=== PATIENT | female | born 1975 | race Caucasian/White ===

== ENCOUNTER → 2018-05-06 | Outpatient (CLI) | payer SELFPAY | LOC: MC.RAD 09:45 | DX: N60.02 Solitary cyst of left breast (principal) ==

== ENCOUNTER → 2018-09-07 | Outpatient (CLI) | payer SELFPAY | LOC: SUN.DIA 08:40 | DX: O24.419 Gestational diabetes mellitus in pregnancy, unspecified control (principal); Z3A.32 32 weeks gestation of pregnancy | CPT/HCPCS: G0108 ==

== ENCOUNTER 2018-10-16 19:50 | Inpatient (IN) | payer SELFPAY ==
[2018-10-16] VITALS (12 sets, daily range): BP systolic 110–133; BP diastolic 55–76; PULSE 71–90; TEMP 98.6
[~2018-10-16] VITALS: Ht 170.2 cm; Wt 80.5 kg
--- NOTE | 2018-10-16 19:55 | NUR ---
PT ARRIVES TO UNIT AMBULATORY WITH SPOUSE AND SISTER WITH COMPLAINTS OF SROM AT 1130 TODAY. PT TO ROOM, CHANGED INTO GOWN. VS OBTAINED, EFM APPLIED, SVE PERFORMED.
[2018-10-16 22:00] LABS: BASO % 0.3 % (0.0-2.0); EOS # 0.1 (0.0-0.7); EOS % 0.7 % (0-4.0); GRAN # 8.6 (1.4-6.5); GRAN % 74.1 % (42.2-75.2); HEMOGLOBIN 10.4 g/dl (12.5-16.0); LYMPH # 1.8 (1.2-3.4); LYMPH % 15.9 % (20.0-51.0); MEAN CELL VOLUME 87 fl (80.0-100.0); MEAN CORPUSCULAR HEMOGLOBIN 28 pg (27.0-31.0); MEAN CORPUSCULAR HGB CONC 32 g/dl (33.0-37.0); MEAN PLATELET VOLUME 9.8 fl (7.4-10.4); MONO # 0.9 (0.1-0.6); MONO % 8.1 % (1.7-9.3); PLATELET COUNT 321 K/mm3 (130-400); RED BLOOD COUNT 3.71 M/mm3 (4.10-5.30)
[2018-10-16 22:02] LABS: HEMATOCRIT 32.1 % (37.0-47.0)
[2018-10-17] VITALS (56 sets, daily range): BP systolic 101–187; BP diastolic 53–129; PULSE 66–123; TEMP 97.8–99
--- NOTE | 2018-10-17 04:00 | NUR ---
0250- SVE /3 by MICHEAL Funk. 0255- updated. 0300- Decels noted on FHT strip; maternal HR suspected. Patient repositioned to sitting upright at this time. 0340- Patient requests birthing ball. FHT difficult to trace due to maternal position while on birthing ball. Decels noted; maternal HR suspected. Patient is becoming increasingly uncomfortable with contractions but is able to breathe through them. 0400- Patient repositioned to LL with peanut ball. Patient is complaining of N/V at this time.
--- NOTE | 2018-10-17 08:38 | NUR ---
0630 PT REQUESTING EPIDURAL PLACEMENT. INFORMED CORRECTIONAL SECURITY OFFICER EN ROUTE TO HOSPITAL AND WILL BEING ANOTHER EPIDURAL 1ST THEN HER'S. VERBALIZES UNDERSTANDING AND ACCEPTANCE OF POC.
--- NOTE | 2018-10-17 08:51 | NUR ---
0715 [address]INATOR INTO ROOM FOR CT PLACEMENT. PT POSITIONED SITTING UPRIGHT AT EDGE OF BED. 0722 SINGLE SHOT GIVEN AND PT TOLERATES WELL. 0730 PT REPOSITIONED IN BED WITH PILLOW UNDER RIGHT HIP.
--- NOTE | 2018-10-17 08:55 | NUR ---
0745 PITOCIN INCREASED TO 12 mU/MIN VIA PUMP. PT MORE COMFORTABLE NOW AND ENC TO SLEEP. SPOUSE LEAVES TO DO FARM CHORES. SISTER REMAINS AT BEDSIDE AND SUPPORTIVE.
--- NOTE | 2018-10-17 08:57 | NUR ---
0800 PITOCIN INCREASED LIGHTS DIMMED ANDPT NOW SLEEPING
--- NOTE | 2018-10-17 09:00 | NUR ---
0820 DR LEWIS INTO ROOM TO MEET PT AND DISCUSS PLAN OF CARE.
--- NOTE | 2018-10-17 09:02 | NUR ---
0845 PITOCIN INCREASED TO 18 mU/MIN. PT SITTING SLIGHTLY MORE UPRIGHT AT PRESENT TIME.
--- NOTE | 2018-10-17 09:17 | NUR ---
0905 BORRERO PLACED AND PT TOLERATED WELL. SVE SHOWS CHANGE TO 5-6CM
--- NOTE | 2018-10-17 10:14 | NUR ---
0945 PT CONTINUES TO BE COMFORTABLE AND RESTING WELL
--- NOTE | 2018-10-17 10:21 | NUR ---
1015 RESTING WELL, DENIES PAIN.
--- NOTE | 2018-10-17 14:10 | NUR ---
1115 SECOND DOES AMPICILLIN HUNG PER DR LEWIS ORDER.
--- NOTE | 2018-10-17 14:20 | NUR ---
1200 SVE = NOW COMPLETE. BORRERO CATH REMOVED AND INSTRUCTIONS FOR PUSHING REVIEWED WITH PT. 1205 DR LEWIS PUSHING WITH PT.
--- NOTE | 2018-10-17 14:22 | NUR ---
1210 DR LEWIS OUT OF ROOM. PT PUSHING WITH ACH CONTRACTIONS. REPOSITIONED TO RL SIDE AND CONTINUES TO PUSH WELL WITH SUPPORT OF AND SISTER.
--- NOTE | 2018-10-17 14:24 | NUR ---
1225 REPOSISIONED TO LL SIDE AND CONTINUES TO PUSH WELL WITH EACH CONTRACTION
--- NOTE | 2018-10-17 14:32 | NUR ---
1242 REPOSITIONED TO SF AND CONTINUES TO PUSH WELLWITH EACH CONTRACTION. GOOD PROGRESS NOTED WITH DESCENT OF HEAD.
--- NOTE | 2018-10-17 14:35 | NUR ---
1257 GOOD PROGRESS, DR LEWIS INFORMED AND INTO ROOM TO ASSESS PT. 1300 CONTINUES TO PUSHWITH EACH CONTRACTION AND CROWNS UP MORE.
--- NOTE | 2018-10-17 14:36 | NUR ---
1300 SET UP FOR DELIVERY, NSY NOTIFIED. PERINIUM PREPPED WITH CHLOROHEXIDINE PREP. 1305 PUSHING WELL. 1310 DELIVERY OF MALE INFANT. SPONT RESP NOTED AND TO MOM'S ABD WITH INFANT BEING DRIED AND STIMULATED WITH WARM BLANKETS, CORD CLAMPED AND FOB CUTS CORD. LUSTY CRY NOTED AND PARENTS PLEASED WITH . 1313 DELIVERY OF PLACENTA, SPONT AND INTACT. PITOCIN RATE INCREASED TO 333 mU/MIN PER PUMP. 1314 STARTED OF PERINEAL 2ND DEGREEE LAC STARTED BY . INFNT SKIN TO SKIN WITH MOM. 1325 REPAIR COMPLETED AND PERINEUM CLEANED WITH SOAPY WATER. ICE PACK TO PERINEUM AND BED TOGETHER WITH WARM BLANKETS PLACED. 1345 MOTIRN 800 MG PO FOR CONTROL OF PAIN AND JUICE PROVIDED ALONG WITH ICE WATER. ATTEMPTING TO LATCH TO LT BREAST.
--- NOTE | 2018-10-17 14:56 | NUR ---
49150 BP CUFF KINKED WHILE TAKING. FALSELY ELEVATED.
--- NOTE | 2018-10-17 14:57 | NUR ---
1445 TO [facility] AFTER NURSING FOR WT AND ASSESSMENT. PT EXTREMELY TIRED.
--- NOTE | 2018-10-17 15:46 | NUR ---
1515 VISITS WITH [facility] MEM[employer]ERS. DENIES NEEDS.
--- NOTE | 2018-10-17 15:50 | NUR ---
1540 COMPLAINING OF BEING LIGHTHEADED, HOT AND NAUSEATED. HOB DOWN. FUNDUS FIRMTO PALPATION AND FLOW WITHIN NORMAL LIMITS. FAN ON AND SUGGESTED SHE MIGHT NEED FOOD SINCE WAS GESTIONAL DIABETIC AND HAS NO FOOD FOR PROLONGED PERIOD OF TIME. REQUESTED ICE AND REFILL ON H2O MUG. 1545 ICE CREAM AND WATER PROVIDED AND STARTING TO FEEL BETTER.
[2018-10-18 01:30] VITALS: BP 125/73; PULSE 92; TEMP 98.2
[2018-10-18] MEDS ORDERED: IBU800 M1 PO (08:52)
[2018-10-18 09:45] VITALS: BP 110/72; PULSE 84; TEMP 97.9
--- NOTE | 2018-10-18 10:13 | NUR ---
Initial visit; Parents thanked Print Line Inspector for offering congratulations and God's blessings for the of their son. Print Line Inspector thanked them for choosing [facility].
[2018-10-18 16:30] VITALS: BP 113/50; PULSE 86; TEMP 98.3
[2018-10-18 22:30] VITALS: BP 109/51; PULSE 89; TEMP 98.8
[2018-10-19 08:42] VITALS: BP 116/76; PULSE 78; TEMP 98.1
== END 2018-10-19 13:30 | disposition home or self-care (01) | DRG 807 ==
LOC: LDRO 19:50 → LDR 19:55 → OB 10-17 18:00
PROVIDERS: ADMIT Obstetrics & Gynecology
PROC: 10E0XZZ Delivery of Products of Conception, External Approach (ICD-10-PCS; principal; 2018-10-17)
PROC: 0KQM0ZZ Repair Perineum Muscle, Open Approach (ICD-10-PCS; 2018-10-17)
DX: O42.02 Full-term premature rupture of membranes, onset of labor within 24 hours of rupture (principal); Z37.0 Single live birth; Z3A.38 38 weeks gestation of pregnancy; O24.420 Gestational diabetes mellitus in childbirth, diet controlled; O70.1 Second degree perineal laceration during delivery; O99.02 Anemia complicating childbirth; D64.9 Anemia, unspecified
CPT/HCPCS: J0290; J1580; J2590; J2795; J7120

== ENCOUNTER 2021-12-31 15:48 | Emergency (ER) | payer SELFPAY ==
[~2021-12-31] VITALS: Ht 170.2 cm; Wt 60.9 kg
[~2021-12-31 15:48] MED LIST: IBU800 M1 PO
[2021-12-31 15:55] VITALS: TEMP 98.4
[2021-12-31 16:41] LABS: BASO % 0.4 % (0.0-2.0); EOS % 0.1 % (0.0-4.0); GRAN # 5.8 K/mm3 (1.4-6.5); GRAN % 71.2 % (42.2-75.2); HEMATOCRIT 37.1 % (37.0-47.0); HEMOGLOBIN 12.6 g/dl (12.5-16.0); LYMPH # 1.3 K/mm3 (1.2-3.4); MEAN CELL VOLUME 89 fl (80.0-100.0); MEAN CORPUSCULAR HEMOGLOBIN 30 pg (27-31); MEAN CORPUSCULAR HGB CONC 34 g/dl (33.0-37.0); MEAN PLATELET VOLUME 8.3 fl (7.4-10.4); MONO % 12.1 % (1.7-9.3); PLATELET COUNT 368 K/mm3 (130-400); RED BLOOD COUNT 4.15 M/mm3 (4.10-5.30); REDCELL DISTRIBUTION WIDTH-CV 13.8 % (11.5-14.5)
[2021-12-31 17:16] LABS: ALBUMIN 4.3 gm/dL (3.5-5.0); BILIRUBIN,TOTAL 0.2 mg/dL (0.2-1.2); CALCIUM 9.1 mg/dL (8.4-10.2); CREATININE, serum 0.77 mg/dL (0.57-1.11); POTASSIUM 3.6 mmol/L (3.5-4.5); TOTAL PROTEIN 7.8 gm/dL (6.2-8.1)
[2021-12-31 17:51] LABS: COLLECTION METHOD CLEAN CATCH
[2021-12-31 18:00] LABS: PH 6 (5-8); SQUAMOUS EPITHELIAL 0-2 /hpf (0-10); URINE APPEARANCE Hazy (CLEAR/HAZY); URINE BACTERIA Rare /hpf (NONE SEEN); URINE BILIRUBIN Negative (NEGATIVE); URINE BLOOD 2+ (NEGATIVE); URINE COLOR Yellow (YELLOW); URINE GLUCOSE Negative (NEGATIVE); URINE KETONE Negative (NEGATIVE); URINE LEUKOCYTE ESTERASE Trace (NEGATIVE); URINE NITRATE Negative (NEGATIVE); URINE PROTEIN(semi-quant) 1+ (NEGATIVE); URINE UROBILINOGEN Negative (NEGATIVE)
[2021-12-31 18:19] VITALS: BP 120/80; PULSE 101
[2021-12-31] MEDS ORDERED: AMOXICILLIN875 MG PO (18:20)
== END 2021-12-31 18:25 | disposition home or self-care (01) ==
LOC: COL.ER 15:48
PROVIDERS: Physician Assistant
DX: O03.4 Incomplete spontaneous abortion without complication (principal); O26.891 Other specified pregnancy related conditions, first trimester; H66.92 Otitis media, unspecified, left ear
CPT/HCPCS: J7030

== ENCOUNTER → 2022-03-25 | Outpatient (CLI) | payer OTHER ==
[~2022-03-25] MED LIST changes: +AMOXICILLIN875 MG PO
== END ==
LOC: MC.RAD 11:15
DX: Z12.31 Encounter for screening mammogram for malignant neoplasm of breast (principal)